=== PATIENT | female | born 1965 | race African-American/Black ===

== ENCOUNTER 2017-12-30 11:21 | Inpatient (IN) | payer OTHER ==
[2017-12-30 12:22] VITALS: BMI 21.1
--- NOTE | 2017-12-30 14:38 | HP ---
CIWA Score - CIWA Score Nausea/Vomitin Muscle Tremors: 3 Anxiety: 3 Agitation: 3 Paroxysmal Sweats: 1-Minimal Palms Moist Orientation: 0-Oriented Tacttile Disturbances: 1-Very Mild Itch/Numbness Auditory Disturbances: 1-Very Mild Visual Disturbances: 0-None Headache: 2-Mild CIWA-Ar Total Score: 17 Admission ROS BHS - HPI Chief Complaint: i need help to stop drinking alcohol and heroin abused Allergies/Adverse Reactions: Allergies Allergy/AdvReac Type Severity Reaction Status Date / Time lactose AdvReac Verified 12/30/17 14:18 History of Present Illness: this 52 years old [place] with alcohol dependence and heroin abused,seeking detox,withdrawal symptom,last detox [facility] 2017 not completed syncope htn,arthritis nicotine dependence ambulation with cane knee injury 3 weeks ago multiple admissions in detox but keep relapsing longest period of sobriety 10 years Exam Limitations: No Limitations - Ebola screening Have you traveled outside of the country in the last 21 days: No Have you had contact with anyone from an Ebola affected area: No Have you been sick,other than usual withdrawal symptoms: No Do you have a fever: No - Review of Systems Constitutional: Chills, Loss of Appetite, Night Sweats, Changes in sleep, Weakness EENT: reports: Tearing, Nose Congestion Respiratory: reports: No Symptoms reported Cardiac: reports: No Symptoms Reported GI: reports: Diarrhea, Nausea, Vomiting, Abdominal cramping, Other (s/p lap cholecystomy s/p lap gastric sleeve) : reports: No Symptoms Reported Musculoskeletal: reports: Back Pain, Muscle Pain, Other (old injury to right knee 3 weeks ago) Integumentary: reports: Dryness Neuro: reports: Headache, Tremors Endocrine: reports: No Symptoms Reported Hematology: reports: No Symptoms Reported Psychiatric: reports: No Sypmtoms Reported, Judgement Intact, Mood/Affect Appropiate, Orientated x3 Patient History - Patient Medical History Hx Asthma: No Hx Chronic Obstructive Pulmonary Disease (COPD): No Hx Cardiac Disorders: No Hx Congestive Heart Failure: No Hx Hypertension: Yes (on meds.) Hx Hypercholesterolemia: No Hx Pacemaker: No HX Cerebrovascular Accident: No Hx Seizures: No Hx Diabetes: No Hx Gastrointestinal Disorders: Yes (Hx of acid relfux.) Hx Liver Disease: No Hx Genitourinary Disorders: No Hx Sexually Transmitted Disorders: No Hx Renal Disease (ESRD): No Hx Thyroid Disease: No Hx Human Immunodeficiency Virus (HIV): No (last 2017 negative) Hx Hepatitis C: No Hx Depression: Yes Hx Suicide Attempt: No Hx Bipolar Disorder: No Hx Schizophrenia: No Other Medical History: no suicidal,no homicidal - Patient Surgical History Past Surgical History: Yes Hx Abdominal Surgery: Yes (Gastric sleeve 2010.) Hx Cholecystectomy: Yes (in 2006) Hx Section: Yes (x1) - PPD History Previous Implant?: Yes Documented Results: Negative w/o proof Implanted On Prior [facility] Admission?: No PPD to be Administered?: Yes - Reproductive History Patient is a Female of Child Bearing Age (11 -55 yrs old): Yes Patient : No - Smoking Cessation Smoking history: Current every day smoker Have you smoked in the past 12 months: Yes Aproximately how many cigarettes per day: 20 Hx Chewing Tobacco Use: No Initiated information on smoking cessation: Yes 'Breaking Loose' booklet given: 12/30/17 - Substance & Tx. History Hx Alcohol Use: Yes Hx Substance Use: Yes Substance Use Type: Alcohol, Cocaine, Heroin, Marijuana - Substances Abused Heroin Frequency: Daily Amount used: 25 bags Age of first use: 49 Date of Last Use: 12/28/17 Alcohol Route: Oral Frequency: Daily Amount used: 2 6pks beer Age of first use: 14 Date of Last Use: 12/30/17 Marijuana/Hashish Route: Smoking Frequency: Daily Amount used: $30 Age of first use: 14 Date of Last Use: 12/29/17 Cocaine Route: Inhalation Frequency: 1-3 times last 30 days Amount used: 1/2 bag Age of first use: 18 Date of Last Use: 12/27/17 Family Disease History - Family Disease History Family History: Denies Admission Physical Exam BHS - Vital Signs Vital Signs: Vital Signs - 24 hr 12/30/17 12:18 Pulse Rate 85 Respiratory 18 Rate Blood Pressure 167/99 - Physical General Appearance: Yes: Moderate Distress, Tremorous, Irritable, Sweating, Anxious HEENTM: Yes: Normal ENT Inspection, ANGELINA, Pharynx Normal Respiratory: Yes: Lungs Clear, Normal Breath Sounds, No Respiratory Distress Neck: Yes: Within Normal Limits, Supple, Trachea in good position Breast: Yes: Breast Exam Deferred Cardiology: Yes: Within Normal Limits, Regular Rhythm, Regular Rate, S1, S2 Abdominal: Yes: Within Normal Limits, Normal Bowel Sounds, Non Tender, Soft Genitourinary: Yes: Within Normal Limits Back: Yes: Muscle Spasm Musculoskeletal: Yes: full range of Motion, Back pain, Muscle Pain Extremities: Yes: Normal Range of Motion, Tremors, Other (pain in right knee injury 3 weeks ago) Neurological: Yes: asset protection greeter II-XII NML intact, Alert, Motor Strength 5/5 Integumentary: Yes: Dry Lymphatic: Yes: Within Normal Limits - Diagnostic (1) Alcohol dependence with uncomplicated withdrawal Current Visit: Yes Status: Acute (2) Cocaine dependence Current Visit: Yes Status: Acute (3) Cannabis dependence Current Visit: Yes Status: Acute (4) Heroin abuse Current Visit: Yes Status: Acute (5) Nicotine dependence Current Visit: Yes Status: Acute (6) S/P laparoscopic cholecystectomy Current Visit: Yes Status: Acute (7) Bariatric surgery status Current Visit: Yes Status: Acute (8) Insomnia secondary to depression with anxiety Current Visit: Yes Status: Acute (9) PTSD (post-traumatic stress disorder) Current Visit: Yes Status: Acute (10) Knee injury Current Visit: Yes Status: Acute (11) Use of cane as ambulatory aid Current Visit: Yes Status: Acute Cleared for Admission [facility] - Detox or Rehab [facility] Level of Care: Medically Managed Detox Regimen/Protocol: Librium (urine for drug screen negative for opiate) [facility] Breath Alcohol Content Breath Alcohol Content: 0.025 Urine Pregancy Test - Result Urine Test Results: Negative- NO Line Present Urine Drug Screen - Results Drug Screen Negative: No Urine Drug Screen Results: THC-Marijuana, XIOMARA-Cocaine
[2017-12-30] MEDS ORDERED: MAGNESIUM CITRATE 300 ML BOTTLE PO PRN (14:53)
[2017-12-30] MEDS ORDERED: chlordiazePOXIDE HCL 25 MG CAPSULE PO PRN (14:53)
[2017-12-30] MEDS ORDERED: MAGNESIUM HYDROX 2400MG/30ML ORAL SUSPENSION 30 ML CUP PO PRN (14:53)
[2017-12-30] MEDS ORDERED: hydrOXYzine PAMOATE 25 MG CAPSULE (FP) PO PRN (14:53)
[2017-12-30] MEDS ORDERED: guaiFENesin/D-METHORPHAN HB 10 ML UNIT-DOSE CUPS PO PRN (14:53)
[2017-12-30] MEDS ORDERED: LOPERAMIDE HCL 2 MG CAPSULE PO PRN (14:53)
[2017-12-30] MEDS ORDERED: P-EPHED 60MG/TRIPROLIDI 2.5MG TABLET PO PRN (14:53)
[2017-12-30] MEDS ORDERED: MAG HYDROX/AL HYDROX/SIMETH 30 ML UNIT-DOSE CUP PO PRN (14:53)
[2017-12-30] MEDS ORDERED: ACETAMINOPHEN 325 MG TABLET (FP) PO PRN (14:53)
[2017-12-30] MEDS ORDERED: MENTHOL/PHENOL 1 EACH UD MM PRN (14:53)
[2017-12-30] MEDS ORDERED: IBUPROFEN 400 MG TABLET (FP) PO PRN (14:53)
[2017-12-30] MEDS ORDERED: NICOTINE POLACRILEX 2 MG GUM BUC PRN (14:53)
[2017-12-30] MEDS: chlordiazePOXIDE HCL 25 MG CAPSULE PO SCH ×2 (16:46→22:34)
[2017-12-30] MEDS: NICOTINE 21 MG/24 HOURS TOPICAL PATCH TD SCH (16:53)
[2017-12-30] MEDS ORDERED: LOSARTAN POTASSIUM 50 MG TABLET (FP) PO ONE (19:45)
--- NOTE | 2017-12-30 19:45 | PN ---
[facility] Progress Note Note: Vital Signs Temperature 98.1 F 12/30/17 18:19 Pulse Rate 68 12/30/17 18:19 Respiratory Rate 18 12/30/17 18:19 Blood Pressure 170/98 12/30/17 18:19 O2 Sat by Pulse Oximetry (%) Patient on Losartan 100mg QD missed dose today, dose for today ordered. increase fluids repeat v/s continue to monitor
[2017-12-30] MEDS: THIAMINE HCL 100 MG TABLET (FP) PO SCH (22:34)
[2017-12-31] MEDS: chlordiazePOXIDE HCL 25 MG CAPSULE PO SCH ×4 (06:07→22:45)
--- NOTE | 2017-12-31 09:43 | CONSULT ---
[facility] Psychiatric Consult - Data Date of interview: 12/31/17 Admission source: [facility] Identifying data: Patient is a 52 year old female, mother of two, unemployed, domiciled, and is supported by public assistance. This is patient's first admission to detox. Pt. admitted to for alcohol and marijuana dependence. Substance Abuse History: Smoking Cessation. Smoking history: Current every day smoker. Have you smoked in the past 12 months: Yes. Aproximately how many cigarettes per day: 20. Hx Chewing Tobacco Use: No. Initiated information on smoking cessation: Yes. 'Breaking Loose' booklet given: 12/30/17. - Substance & Tx. History. Hx Alcohol Use: Yes. Hx Substance Use: Yes. Substance Use Type : Alcohol, Cocaine, Heroin, Marijuana. - Substances Abused. Heroin. Frequency: Daily. Amount used: 25 bags. Age of first use: 49. Date of Last Use: 12/28/17. Alcohol. Route: Oral. Frequency: Daily. Amount used: 2 6pks beer. Age of first use: 14. Date of Last Use: 12/30/17. Marijuana/ Hashish. Route: Smoking. Frequency: Daily. Amount used: $30. Age of first use: 14. Date of Last Use: 12/29/17. Cocaine. Route: Inhalation. Frequency: 1-3 times last 30 days. Amount used: 1/2 bag. Age of first use: 18. Date of Last Use: 12/27/17 Medical History: hypertension, acid reflux, Gastric sleeve 2010 Psychiatric History: Patient denies h/o pscyhiatric hospitalizations. OPD is provided in [place] but reports not seeing her psychiatrist in approximately 4 -5 months. States she was once non compliant with her zoloft medication but has been taking it consistently as of late. Last took zoloft 200mg before admission to detox. Pt. denies h/o suicide attempt. Physical/Sexual Abuse/Trauma History: denies. Mental Status Exam - Mental Status Exam Alert and Oriented to: Time, Place, Person Cognitive Function: Good Patient Appearance: Well Groomed Mood: Euthymic Affect: Mood Congruent Patient Behavior: Cooperative Speech Pattern: Appropriate Voice Loudness: Normal Thought Process: Intact, Goal Oriented Thought Disorder: Not Present Hallucinations: Denies Suicidal Ideation: Denies Homicidal Ideation: Denies Insight/Judgement: Poor Sleep: Fair Appetite: Fair Muscle strength/Tone: Normal Gait/Station: Normal Psychiatric Findings - Problem List ([place] 1, 2,3) (1) Alcohol dependence with uncomplicated withdrawal Current Visit: Yes Status: Acute (2) Cannabis dependence Current Visit: Yes Status: Acute (3) Cocaine dependence Current Visit: Yes Status: Acute (4) Nicotine dependence Current Visit: Yes Status: Acute (5) Depressive disorder Current Visit: Yes Status: Suspected (6) Substance induced mood disorder Current Visit: Yes Status: Acute - Initial Treatment Plan Initial Treatment Plan: Psychoeducation provided. Detoxification in progress. Zoloft 200mg PO daily ordered. Benefits and side effects discussed. Verbal consent given.
[2017-12-31 10:25] LABS: URINE APPEARANCE CLEAR; URINE BILIRUBIN NEGATIVE (<2.0 mg/dL); URINE COLOR STRAW; URINE GLUCOSE (UA) NEGATIVE (NEGATIVE); URINE KETONE NEGATIVE (NEGATIVE); URINE LEUK ESTERASE TRACE (NEGATIVE); URINE NITRITE NEGATIVE (NEGATIVE); URINE PROTEIN NEGATIVE (NEGATIVE); URINE UROBILINOGEN NEGATIVE mg/dL (0.2-1.0)
[2017-12-31] MEDS: LOSARTAN POTASSIUM 50 MG TABLET (FP) PO SCH (10:25)
[2017-12-31] MEDS: SERTRALINE HCL 50 MG TABLET (FP) PO SCH (10:25)
[2017-12-31 10:26] LABS: HEMATOCRIT 39.6 % (32.4-45.2); HEMOGLOBIN 13.7 GM/dL (10.7-15.3); MCH 33.1 pg (25.7-33.7); MCHC 34.7 g/dl (32.0-36.0); MEAN CELL VOLUME 95.6 fl (80-96); MEAN PLT VOLUME 9.6 fl (7.5-11.1); PLATELET COUNT 279 K/MM3 (134-434); RBC 4.15 M/mm3 (3.60-5.2); RDW 13.2 % (11.6-15.6); WHITE BLOOD COUNT 3.9 K/mm3 (4.0-10.0)
[2017-12-31] MEDS: PRENATAL VITAMINS W/ FOLIC ACID TABLET (FP) PO SCH (10:26)
[2017-12-31] MEDS: NICOTINE 21 MG/24 HOURS TOPICAL PATCH TD SCH (10:27)
[2017-12-31 10:49] LABS: ALBUMIN 3.6 g/dl (3.4-5.0); ANION GAP 9 (8-16); BLOOD UREA NITROGEN 9 mg/dL (7-18); CALCIUM 9.4 mg/dL (8.5-10.1); CHLORIDE 109 mmol/L (98-107); CO2 27 mmol/L (21-32); GLUCOSE,RANDOM 75 mg/dL (74-106); POTASSIUM 3.6 mmol/L (3.5-5.1); SODIUM 145 mmol/L (136-145)
[2017-12-31 10:54] LABS: ALK PHOS 95 U/L (45-117); BILIRUBIN,TOTAL 0.2 mg/dL (0.2-1.0); SGOT/AST 16 U/L (15-37); SGPT/ALT 30 U/L (12-78); TOT PROT 7.2 g/dl (6.4-8.2)
[2017-12-31 11:01] LABS: EPI CELLS RARE /HPF (FEW)
--- NOTE | 2017-12-31 11:16 | EKG ---
Test Reason : Blood Pressure : / mmHG Vent. Rate : 067 BPM Atrial Rate : 067 BPM P-R Int : 122 ms QRS Dur : 084 ms QT Int : 400 ms P-R-T Axes : 057 042 067 degrees QTc Int : 422 ms NORMAL SINUS RHYTHM POSSIBLE LEFT ATRIAL ENLARGEMENT NO PREVIOUS ECGS AVAILABLE Confirmed by TIFFANIE CARROLL MD ([id number]) on 12/31/2017 11:16:39 AM Referred By: Confirmed By:TIFFANIE CARROLL MD
--- NOTE | 2017-12-31 15:07 | PN ---
S CIWA - CIWA Score Nausea/Vomitin-No Nausea/No Vomiting Muscle Tremors: 1-None Visible, but [place] Anxiety: 1-Mildly Anxious Agitation: 1-Slight > Activity Paroxysmal Sweats: No Perspiration Orientation: 0-Oriented Tacttile Disturbances: 0-None Auditory Disturbances: 0-None Visual Disturbances: 0-None Headache: 0-None Present CIWA-Ar Total Score: 3 BHS Progress Note (SOAP) Subjective: Pt states that she was also using heroin prior to admission here- last use was 3 days prior and so not seen in urine, admitted for alcohol detox Obj: Laboratory Tests 12/31/17 12/31/17 12/31/17 05:50 05:50 05:50 WBC 3.9 L RBC 4.15 Hgb 13.7 Hct 39.6 MCV 95.6 MCH 33.1 MCHC 34.7 RDW 13.2 Plt Count 279 MPV 9.6 Sodium 145 Potassium 3.6 Chloride 109 H Carbon Dioxide 27 Anion Gap 9 BUN 9 Creatinine 1.0 Creat Clearance w eGFR 58.22 Random Glucose 75 Calcium 9.4 Total Bilirubin 0.2 AST 16 ALT 30 Alkaline Phosphatase 95 Total Protein 7.2 Albumin 3.6 Urine Color Urine Appearance Urine pH Ur Specific [place] Urine Protein Urine Glucose (UA) Urine Ketones Urine Blood Urine Nitrite Urine Bilirubin Urine Urobilinogen Ur Leukocyte Esterase Urine WBC (Auto) Urine RBC (Auto) Ur Epithelial Cells RPR Titer Nonreactive 12/31/17 07:00 WBC RBC Hgb Hct MCV MCH MCHC RDW Plt Count MPV Sodium Potassium Chloride Carbon Dioxide Anion Gap BUN Creatinine Creat Clearance w eGFR Random Glucose Calcium Total Bilirubin AST ALT Alkaline Phosphatase Total Protein Albumin Urine Color Straw Urine Appearance Clear Urine pH 7.0 Ur Specific [place] 1.008 Urine Protein Negative Urine Glucose (UA) Negative Urine Ketones Negative Urine Blood Negative Urine Nitrite Negative Urine Bilirubin Negative Urine Urobilinogen Negative Ur Leukocyte Esterase Trace Urine WBC (Auto) 1 Urine RBC (Auto) None Ur Epithelial Cells Rare RPR Titer labs WNL Vital Signs - 24 hr 12/30/17 12/30/17 12/31/17 18:19 22:55 00:49 Temperature 98.1 F 98.4 F Pulse Rate 68 69 Respiratory 18 19 18 Rate Blood Pressure 170/98 156/91 12/31/17 12/31/17 12/31/17 03:30 06:00 10:26 Temperature 98.1 F 97.1 F L Pulse Rate 76 82 Respiratory 18 18 16 Rate Blood Pressure 152/102 164/92 BP noted to be high nl labs Ass: continue alcohol detox protocol, d/w pt our limitations not able to start methadone b/c urine neg fof opiates Plan: continue alcohol detox protocol Will add clonidine for BP control- as the high BP could be from withdrawing from heroin, pt is on losartan
[2017-12-31] MEDS ORDERED: cloNIDine HCL 0.1 MG TABLET PO ONE (15:15)
[2017-12-31] MEDS: cloNIDine HCL 0.1 MG TABLET PO SCH (22:45)
[2017-12-31] MEDS: THIAMINE HCL 100 MG TABLET (FP) PO SCH (22:45)
[2018-01-01] MEDS: chlordiazePOXIDE HCL 25 MG CAPSULE PO SCH ×2 (06:11→10:32)
[2018-01-01] MEDS: PRENATAL VITAMINS W/ FOLIC ACID TABLET (FP) PO SCH (10:32)
[2018-01-01] MEDS: SERTRALINE HCL 50 MG TABLET (FP) PO SCH (10:32)
[2018-01-01] MEDS: cloNIDine HCL 0.1 MG TABLET PO SCH ×2 (10:33→22:23)
[2018-01-01] MEDS: NICOTINE 21 MG/24 HOURS TOPICAL PATCH TD SCH (10:33)
[2018-01-01] MEDS: LOSARTAN POTASSIUM 50 MG TABLET (FP) PO SCH (11:17)
--- NOTE | 2018-01-01 15:42 | PN ---
S CIWA - CIWA Score Nausea/Vomitin Muscle Tremors: 3 Anxiety: 3 Agitation: 3 Paroxysmal Sweats: 1-Minimal Palms Moist Orientation: 0-Oriented Tacttile Disturbances: 1-Very Mild Itch/Numbness Auditory Disturbances: 1-Very Mild Visual Disturbances: 0-None Headache: 2-Mild CIWA-Ar Total Score: 17 BHS Progress Note (SOAP) Subjective: alert,irritable,anxious,interrupted sleep,tremor Objective: 01/01/18 15:41 Vital Signs Temperature 98.4 F 01/01/18 10:00 Pulse Rate 87 01/01/18 10:00 Respiratory Rate 16 01/01/18 10:00 Blood Pressure 135/85 01/01/18 10:00 O2 Sat by Pulse Oximetry (%) Laboratory Last Values WBC 3.9 K/mm3 (4.0-10.0) L 12/31/17 05:50 RBC 4.15 M/mm3 (3.60-5.2) 12/31/17 05:50 Hgb 13.7 GM/dL (10.7-15.3) 12/31/17 05:50 Hct 39.6 % (32.4-45.2) 12/31/17 05:50 MCV 95.6 fl (80-96) 12/31/17 05:50 MCH 33.1 pg (25.7-33.7) 12/31/17 05:50 MCHC 34.7 g/dl (32.0-36.0) 12/31/17 05:50 RDW 13.2 % (11.6-15.6) 12/31/17 05:50 Plt Count 279 K/MM3 (134-434) 12/31/17 05:50 MPV 9.6 fl (7.5-11.1) 12/31/17 05:50 Sodium 145 mmol/L (136-145) 12/31/17 05:50 Potassium 3.6 mmol/L (3.5-5.1) 12/31/17 05:50 Chloride 109 mmol/L (98-107) H 12/31/17 05:50 Carbon Dioxide 27 mmol/L (21-32) 12/31/17 05:50 Anion Gap 9 (8-16) 12/31/17 05:50 BUN 9 mg/dL (7-18) 12/31/17 05:50 Creatinine 1.0 mg/dL (0.55-1.02) 12/31/17 05:50 Creat Clearance w eGFR 58.22 (>60) 12/31/17 05:50 Random Glucose 75 mg/dL (74-106) 12/31/17 05:50 Calcium 9.4 mg/dL (8.5-10.1) 12/31/17 05:50 Total Bilirubin 0.2 mg/dL (0.2-1.0) 12/31/17 05:50 AST 16 U/L (15-37) 12/31/17 05:50 ALT 30 U/L (12-78) 12/31/17 05:50 Alkaline Phosphatase 95 U/L (45-117) 12/31/17 05:50 Total Protein 7.2 g/dl (6.4-8.2) 12/31/17 05:50 Albumin 3.6 g/dl (3.4-5.0) 12/31/17 05:50 Urine Color Straw 12/31/17 07:00 Urine Appearance Clear 12/31/17 07:00 Urine pH 7.0 (5.0-8.0) 12/31/17 07:00 Ur Specific [place] 1.008 (1.001-1.035) 12/31/17 07:00 Urine Protein Negative (NEGATIVE) 12/31/17 07:00 Urine Glucose (UA) Negative (NEGATIVE) 12/31/17 07:00 Urine Ketones Negative (NEGATIVE) 12/31/17 07:00 Urine Blood Negative (NEGATIVE) 12/31/17 07:00 Urine Nitrite Negative (NEGATIVE) 12/31/17 07:00 Urine Bilirubin Negative (<2.0 mg/dL) 12/31/17 07:00 Urine Urobilinogen Negative mg/dL (0.2-1.0) 12/31/17 07:00 Ur Leukocyte Esterase Trace (NEGATIVE) 12/31/17 07:00 Urine WBC (Auto) 1 /hpf (3-5) 12/31/17 07:00 Urine RBC (Auto) None /hpf (0-3) 12/31/17 07:00 Ur Epithelial Cells Rare /HPF (FEW) 12/31/17 07:00 RPR Titer Nonreactive (NONREACTIVE) 12/31/17 05:50 Assessment: 01/01/18 15:41 withdrawal symptom Plan: continue detox
[2018-01-01] MEDS: chlordiazePOXIDE 5 MG CAPSULE PO SCH ×2 (17:32→22:23)
[2018-01-01] MEDS: THIAMINE HCL 100 MG TABLET (FP) PO SCH (22:23)
[2018-01-01] MEDS: MELATONIN 5 MG TABLETS PO PRN (22:24)
[2018-01-02] MEDS: chlordiazePOXIDE 5 MG CAPSULE PO SCH ×2 (06:33→10:45)
[2018-01-02] MEDS: NICOTINE 21 MG/24 HOURS TOPICAL PATCH TD SCH (10:45)
[2018-01-02] MEDS: LOSARTAN POTASSIUM 50 MG TABLET (FP) PO SCH (10:45)
[2018-01-02] MEDS: cloNIDine HCL 0.1 MG TABLET PO SCH ×2 (10:45→22:11)
[2018-01-02] MEDS: SERTRALINE HCL 50 MG TABLET (FP) PO SCH (10:45)
[2018-01-02] MEDS: PRENATAL VITAMINS W/ FOLIC ACID TABLET (FP) PO SCH (10:45)
[2018-01-02] MEDS: chlordiazePOXIDE HCL 10 MG CAPSULE PO SCH ×2 (17:24→22:11)
--- NOTE | 2018-01-02 19:15 | PN ---
S Progress Note (SOAP) Subjective: States feeling better. No withdrawal symptoms. Objective: Alert and oriented x 3. Lungs CTA. Abdomen soft and non-tender. Bowel sounds ( +) Denies nausea or vomiting. Lab Results WBC 3.9 K/mm3 (4.0-10.0) L 12/31/17 05:50 RBC 4.15 M/mm3 (3.60-5.2) 12/31/17 05:50 Hgb 13.7 GM/dL (10.7-15.3) 12/31/17 05:50 Hct 39.6 % (32.4-45.2) 12/31/17 05:50 MCV 95.6 fl (80-96) 12/31/17 05:50 MCHC 34.7 g/dl (32.0-36.0) 12/31/17 05:50 RDW 13.2 % (11.6-15.6) 12/31/17 05:50 Plt Count 279 K/MM3 (134-434) 12/31/17 05:50 Sodium 145 mmol/L (136-145) 12/31/17 05:50 Potassium 3.6 mmol/L (3.5-5.1) 12/31/17 05:50 Chloride 109 mmol/L (98-107) H 12/31/17 05:50 Carbon Dioxide 27 mmol/L (21-32) 12/31/17 05:50 Anion Gap 9 (8-16) 12/31/17 05:50 BUN 9 mg/dL (7-18) 12/31/17 05:50 Creatinine 1.0 mg/dL (0.55-1.02) 12/31/17 05:50 Random Glucose 75 mg/dL (74-106) 12/31/17 05:50 Calcium 9.4 mg/dL (8.5-10.1) 12/31/17 05:50 Vital Signs - 24 hr 01/01/18 01/02/18 01/02/18 23:17 00:30 07:44 Temperature 97.9 F 98.1 F Pulse Rate 73 67 Respiratory 18 18 18 Rate Blood Pressure 146/96 135/84 01/02/18 01/02/18 10:00 15:27 Temperature 97.6 F 97.9 F Pulse Rate 88 75 Respiratory 16 20 Rate Blood Pressure 134/86 122/75 Labs reviewed. Assessment: Alcohol withdrawal. HTN Plan: Continue detox protocol. For discharge in am. Continue HTN meds at home.
[2018-01-02] MEDS: MELATONIN 5 MG TABLETS PO PRN (22:11)
[2018-01-02] MEDS: THIAMINE HCL 100 MG TABLET (FP) PO SCH (22:11)
[2018-01-03] MEDS: chlordiazePOXIDE HCL 10 MG CAPSULE PO SCH (05:52)
[2018-01-03 06:42] VITALS: BP 127/75; PULSE 76; TEMP 97.5
--- NOTE | 2018-01-03 08:09 | PN ---
S Progress Note (SOAP) Subjective: alert,no complaint Objective: 01/03/18 08:07 Vital Signs Temperature 97.5 F L 01/03/18 06:00 Pulse Rate 76 01/03/18 06:00 Respiratory Rate 18 01/03/18 06:00 Blood Pressure 127/75 01/03/18 06:00 O2 Sat by Pulse Oximetry (%) Assessment: 01/03/18 08:08 detox completed,no withdrawal symptom Plan: discharge today,follow up with after care program as arrangement
--- NOTE | 2018-01-03 08:15 | DS ---
[facility] Detox Discharge Summary Admission Date: 12/30/17 Discharge Date: 01/03/18 - History Present History: Alcohol Dependence, Cannabis Dependence, Cocaine Dependence Additional Comments: follow up with after care program as arrangement Pertinent Past History: nicotine dependence s/p bariatric surgery s/p cholecystectomy insomnia anxiety and depression - Physical Exam Results Vital Signs: Vital Signs Temperature 97.5 F L 01/03/18 06:00 Pulse Rate 76 01/03/18 06:00 Respiratory Rate 18 01/03/18 06:00 Blood Pressure 127/75 01/03/18 06:00 O2 Sat by Pulse Oximetry (%) - Treatment Hospital Course: Detox Protocol Followed, Detoxed Safely, Responded well, Discharged Condition Good Patient has Accepted a Rehab Referral to: declined - Medication Discharge Medications: Ambulatory Orders Losartan Potassium [Cozaar] 100 mg PO DAILY 12/30/17 Sertraline HCl [Zoloft -] 200 mg PO DAILY 12/30/17 - Diagnosis (1) Alcohol dependence with uncomplicated withdrawal Status: Acute (2) Cocaine dependence Status: Acute (3) Cannabis dependence Status: Acute (4) Heroin abuse Status: Acute (5) Nicotine dependence Status: Acute Qualifiers: Nicotine product type: cigarettes Substance use status: uncomplicated Qualified Code(s): F17.210 - Nicotine dependence, cigarettes, uncomplicated (6) S/P laparoscopic cholecystectomy Status: Acute (7) Bariatric surgery status Status: Acute (8) Insomnia secondary to depression with anxiety Status: Acute (9) PTSD (post-traumatic stress disorder) Status: Acute (10) Knee injury Status: Acute (11) Use of cane as ambulatory aid Status: Acute (12) Hypertension Status: Acute - AMA Did Patient Leave Against Medical Advice: No
== END 2018-01-03 06:03 | disposition home or self-care (01) | DRG 773 ==
LOC: YASAS 11:21 → Y6N 14:45
PROVIDERS: ADMIT Surgery; ATTEND Surgery
PROC: HZ2ZZZZ Detoxification Services for Substance Abuse Treatment (ICD-10-PCS; principal; 2017-12-30)
DX: F10.230 Alcohol dependence with withdrawal, uncomplicated (principal); F14.20 Cocaine dependence, uncomplicated; F12.20 Cannabis dependence, uncomplicated; F11.10 Opioid abuse, uncomplicated; F17.210 Nicotine dependence, cigarettes, uncomplicated; F51.05 Insomnia due to other mental disorder; F43.10 Post-traumatic stress disorder, unspecified; F19.24 Other psychoactive substance dependence with psychoactive substance-induced mood disorder; F32.9 Major depressive disorder, single episode, unspecified; I10 Essential (primary) hypertension; K21.9 Gastro-esophageal reflux disease without esophagitis; M19.90 Unspecified osteoarthritis, unspecified site; S89.90XA Unspecified injury of unspecified lower leg, initial encounter; X58.XXXA Exposure to other specified factors, initial encounter; Y93.9 Activity, unspecified; Y92.9 Unspecified place or not applicable; R29.2 Abnormal reflex; Z99.89 Dependence on other enabling machines and devices; Z91.011 Allergy to milk products; Z98.84 Bariatric surgery status; Z90.49 Acquired absence of other specified parts of digestive tract
CPT/HCPCS: 36415; 80053; 81003; 81015; 85027; 86593; 93005; 93010; J0735